=== PATIENT | male | born 1995 | race Caucasian/White ===

== ENCOUNTER 2025-02-05 15:02 | Emergency (ER) | payer OTHER, SELFPAY ==
[2025-02-05 15:21] VITALS: BP 133/79; PULSE 94; RESP 19; TEMP 36.6; O2SAT 98; BMI 24.5
--- NOTE | 2025-02-05 15:59 | ED.UPPEXIN ---
HPI - Extremity Injury (Upper) General Chief Complaint: Trauma Stated Complaint: poss dislocated left shoulder Time Seen by Provider: 02/05/25 15:45 Source: patient, RN notes reviewed and old records reviewed Mode of arrival: Ambulatory Limitations: no limitations History of Present Illness HPI narrative: 29-year-old male who states he fell off a ladder yesterday has not had pain in his left shoulder with significant discomfort trying to lift it. No numbness tingling or weakness of the lower arm. [place] was told that he had injury and needs to be evaluated in the emergency department. Patient did have a dose of Toradol IM. Patient denies any other injuries. Related Data Home Medications Medication Instructions Recorded Confirmed albuterol sulfate 90 mcg/actuation 2 puff inhalation Q4H PRN 02/05/25 02/05/25 aerosol inhaler budesonide-formoterol HFA 160 inhalation 02/05/25 02/05/25 mcg-4.5 mcg/actuation aerosol inhaler escitalopram oxalate 20 mg tablet 20 mg PO DAILY 02/05/25 02/05/25 Previous Rx's Medication Instructions Recorded hydrocodone 5 mg-acetaminophen 325 1 tab PO Q6H PRN pain #14 tabs 02/05/25 mg tablet Allergies Allergy/AdvReac Type Severity Reaction Status Date / Time No Known Drug Allergies Allergy Verified 02/05/25 10:15 Review of Systems Review of Systems ROS Unobtainable: All systems reviewed & are unremarkable except as noted in HPI and below Patient History Social History additional social history: PMHX: asthma -- albuterol and symbicort lexapro lives in [facility] no etoh no cigs PSHX: R wrist surgery, inguinal hernia FHX: cancer 01/2025 Exam Narrative Exam Narrative: GENERAL: Alert and oriented x three, male in moderate distress HEENT: Head normocephalic, atraumatic, EOMI, pupils reactive, face symmetric, moist mucous membranes NECK: Supple, full range of motion, no cervical vertebral tenderness. CARDIOVASCULAR: Regular rate and rhythm without murmurs, rubs or gallops. RESPIRATORY: Breath sounds equal bilaterally, no wheezes rales or rhonchi. ABDOMEN: Soft, nontender. Normoactive bowel sounds all 4 quadrants. No guarding or rebound, rigidity, no mass : No CVA tenderness EXTREMITIES: Normal range of motion accepted left shoulder, patient has a normal obstetrician/gynecologist bilaterally, 2+ radial pulses bilaterally. Normal range of motion of the elbow. No bony tenderness of the left hand, wrist, arm, elbow, humerus. Patient has some tenderness over the distal clavicle. There is some slight asymmetry but no obvious deformity of left versus right shoulder. Patient does not have any ecchymosis or skin changes. No clubbing or edema. Neurovascularly intact NEUROLOGICAL: Cranial nerves II through XII grossly intact. Moving all extremities SKIN: Warm, dry, no petechiae, no rashes or lesions. Initial Vital Signs Initial Vital Signs: Vital Signs Temperature 97.9 F 02/05/25 15:21 Pulse Rate 94 H 02/05/25 15:21 Respiratory Rate 19 02/05/25 15:21 Blood Pressure 133/79 02/05/25 15:21 Pulse Oximetry 98 02/05/25 15:21 Oxygen Delivery Method Room Air 02/05/25 15:21 Course Orders Ordered: Discontinued Medications Hydrocodone Bitart/Acetaminophen (Hydrocodone/Acet 5/325 Tablet) 2 tab PO NOW ONE Stop: 02/05/25 16:00 Last Admin: 02/05/25 16:03 Dose: 2 tab Documented By: GURPREET Vital Signs Vital signs: Vital Signs - 8 hr 02/05/25 15:21 02/05/25 16:24 Temperature 97.9 F Pulse Rate 94 H 88 Respiratory Rate 19 22 Blood Pressure 133/79 133/86 Pulse Oximetry 98 97 Oxygen Delivery Method Room Air Room Air MDM - Extremity Injury (Upper) MDM Narrative Medical decision making narrative: Patient had outpatient x-rays today which show acutely mildly displaced left 4th and 5th rib fractures left lung is well visualized no evidence of hemothorax or pneumothorax. Shoulder x-ray shows grade 3 AC separation. Glenohumeral joint is normal. Plan for sling, pain medication and follow up with Orthopedic surgery. We will also provide incentive spirometer. Vitals here are appropriate patient's lung was well visualized do not feel any need to repeat his imaging here in the department. Discharge Plan Departure Patient Disposition: Home Clinical Impression: Closed rib fracture, Separation of left acromioclavicular joint Instructions: DI for Rib Fracture, DI for AC Joint Separation Activity Restrictions/Additional Instructions: Follow up with Orthopedic surgery, you do have a appears to be a grade 3 AC separation on your x-ray imaging. Please call to set up an appointment. Your imaging also shows 4th and 5th rib fractures the left. Use incentive spirometer once hourly while awake for the next 1-2 weeks. You can take acetaminophen up to a 1000 mg every 6 hours as needed for pain and/or ibuprofen up to 600 mg every 6 hours as needed. If inadequate for pain you can take Prue 1-2 tablets every 6 hours as needed instead of acetaminophen. This medication can make you sleepy do not drive, perform hazardous activities or make any major decisions while taking it. This medication will make you constipated please take a stool softener once to twice daily until stools are soft and regular. Prescription sent to [facility] on [facility] Splint Care: Keep splint clean and dry. Elevated affected body part to decrease swelling. OK to use ice pack on the affected body part. Use for 15-20 minutes each time, for 5-6x per day. If you develop worsening pain, numbness, tingling, discoloration of the affected body part, adjust the sling, and either see your doctor for an urgent re-assessment, or return to the Emergency Department. Return to the Emergency Department for any new or worsening symptoms. Prescriptions: New hydrocodone-acetaminophen 5-325 mg tablet 1 tab PO Q6H PRN (Reason: pain) Qty: 14 0RF No Action budesonide-formoterol 160-4.5 mcg/actuation HFA aerosol inhaler inhalation albuterol sulfate 90 mcg/actuation HFA aerosol inhaler 2 puff inhalation Q4H PRN escitalopram oxalate 20 mg tablet 20 mg PO DAILY Referrals: Miscellaneous,MD Lidia [Primary Care Provider] - Tod Velazquez MD [Physician] - Stand Alone Forms: Patient Portal/API/Survey
[2025-02-05] MEDS: HYDROCODONE/ACET 5/325 TABLET 2 TAB PO (16:03)
--- NOTE | 2025-02-05 16:12 | PC.NURSE ---
Pt does not have his ID on him therefore his prescription was sent to [facility] on [facility]. 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 Pharmacy states OK for friend to pickup prescription and that they will log friends ID in the system when picking up narcotic prescription. Pharmacy then states they will be likely unable to fill prescription before we close at 6pm. Narcotic prescriptions take 2 hours to fill and it is already 4:15. Notified Dr. Lynn. No new orders. Updated pt to situation. Pt aware to attempt to P/U prescription tonight but may have to P/U Rx tomorrow.
[2025-02-05 16:24] VITALS: BP 133/86; PULSE 88; RESP 22; O2SAT 97
== END 2025-02-05 16:35 | disposition home or self-care (01) ==
PROVIDERS: Emergency Provider Emergency Medicine
DX: S43.102A Unspecified dislocation of left acromioclavicular joint, initial encounter (principal); S22.42XA Multiple fractures of ribs, left side, initial encounter for closed fracture; W11.XXXA Fall on and from ladder, initial encounter
CPT/HCPCS: 99283